=== PATIENT | male | born 1985 | race Hispanic/Latino ===

== ENCOUNTER 2019-05-09 18:18 | Emergency (ER) | payer SELFPAY ==
[2019-05-09] MEDS ORDERED: FENTANYL CITR 100 MCG/2 ML ONE ×2 (18:26→19:30)
[2019-05-09 18:39] LABS: Absolute Lymphocytes (CBC) 2.2 K/uL (0.7-4.9); Basophils % 0.2 % (0-1.3); Hematocrit 43.1 % (39.6-49.0); Lymphocytes % 24.7 % (15.3-44.8); MPV 9.8 fL (7.6-11.3); RBC Red Blood Cell Count 4.42 M/uL (4.33-5.43)
[2019-05-09 18:50] LABS: Potassium 3.5 mmol/L (3.5-5.1)
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
--- NOTE | 2019-05-09 19:05 | RAD REPORT ---
EXAM DESCRIPTION: RAD - Shoulder Left 2 View - 05/09/2019 6:54 pm CLINICAL HISTORY: Left shoulder pain FINDINGS: Anterior dislocation involves the humeral head. No fracture seen
[2019-05-09] MEDS ORDERED: DIAZEPAM 10 MG/2 ML INJ SYRINGE ONE (19:30)
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
--- NOTE | 2019-05-09 20:42 | RAD REPORT ---
EXAM DESCRIPTION: RAD - Shoulder Left 2 View - 05/09/2019 7:45 pm CLINICAL HISTORY: Left shoulder pain status post fall FINDINGS: On one view the previously described dislocation appears reduced. On the other view it is uncertain. Transscapular or axillary view would be helpful for further evaluation
== END 2019-05-09 20:09 | disposition home or self-care (01) ==
LOC: ER 18:18
PROC: 0RSKXZZ Reposition Left Shoulder Joint, External Approach (ICD-10-PCS; principal; 2019-05-09)
DX: S43.005A Unspecified dislocation of left shoulder joint, initial encounter (principal); V49.9XXA Car occupant (driver) (passenger) injured in unspecified traffic accident, initial encounter
CPT/HCPCS: 36415; 70450; 71260; 72125; 74177; 80048; 85025; 86850; 86900; 86901; J3010; J3360; Q9967

== ENCOUNTER 2020-07-18 20:21 | Emergency (ER) | payer SELFPAY ==
[2020-07-18] MEDS ORDERED: LIDOCAINE 1% W/EPI 1:100,000 MDV 20 ML VIAL ONE (21:02)
--- NOTE | 2020-07-18 21:17 | RAD REPORT ---
EXAM DESCRIPTION: RAD - Hand Left 3 View - 07/18/2020 9:10 pm CLINICAL HISTORY: PAIN, laceration COMPARISON: None. FINDINGS: No fracture, dislocation or periosteal reaction noted. No foreign body at the laceration s ite. There is an unrelated round metallic foreign body adjacent to the fourth proximal phalanx head. IMPRESSION: Negative left hand examination.
--- NOTE | 2020-07-18 21:41 | EDPHYS ---
Physician Documentation [facility] Name: Mitchel Beebe Age: 34 yrs Sex: Male : 1985 Arrival Date: 07/18/2020 Time: 20:26 Bed 7 Private MD: Collin Higuera HPI: 07/18 20:46 This 34 yrs old Male presents to ER via Ambulatory with complaints of Hand cp Injury. 20:46 The patient or guardian reports injury, a laceration, pain. The complaints affect the cp dorsum of left hand. Context: resulted from sharp edge of glass. Onset: The symptoms/episode began/occurred today. Associated signs and symptoms: Pertinent negatives: cyanosis distally, decreased sensation distally. Historical: - Allergies: 20:42 No Known Allergies; lp1 - Home Meds: 20:42 None [Active]; lp1 - PMHx: 20:42 None; lp1 - PSHx: 20:42 None; lp1 - Immunization history:: Adult Immunizations up to date, Last tetanus immunization: up to date. - Social history:: Smoking status: Patient reports the use of cigarette tobacco products, denies chronic smoking, but will smoke occasionally. ROS: 20:55 Skin: Positive for laceration(s), of the dorsum of left hand. cp 20:55 Constitutional: Negative for body aches, chills, fever. cp 20:55 Neuro: Negative for numbness, tingling. 20:55 All other systems are negative. Exam: 21:00 Constitutional: The patient appears in no acute distress, alert, awake, well developed, cp well nourished. 21:00 Musculoskeletal/extremity: Extremities: noted in the left fifth metacarpal: pain, cp tenderness, ROM: full active range of motion, in the left fifth finger, Perfusion: the extremity is normally perfused throughout, Sensation intact. 21:00 Skin: injury, laceration(s), the wound is approximately 2.5 cm(s), of the dorsum of left hand medial mid fifth metacarpal, that can be described as linear, with mild bleeding. Vital Signs: 20:40 BP 117 / 74; Pulse 62; Resp 16; Temp 98.8(O); Pulse Ox 98% on R/A; Weight 68.04 kg; lp1 Laceration: 21:40 Wound Repair of 2.5cm ( 1.0in ) subcutaneous laceration to dorsum of left hand. Linear cp shaped.. Distal neuro/vascular/tendon intact. Anesthesia: Wound infiltrated with 5 mls of 1% lidocaine w/ Epi. Wound prep: Moderate cleansing by nurse by me, Wound irrigation by me. Skin closed with 4 4-0 Prolene using simple sutures and sterile technique. Dressed with Bacitracin, 4x4's. Patient tolerated well. MDM: 20:33 Patient medically screened. fabio 21:00 Differential diagnosis: open fracture, tendon rupture, simple laceration. cp 21:38 Data reviewed: vital signs, nurses notes, radiologic studies, plain films. Test cp interpretation: by ED physician or midlevel provider: xrays of left hand negative for fracture. Counseling: I had a detailed discussion with the patient and/or guardian regarding: the historical points, exam findings, and any diagnostic results supporting the discharge/admit diagnosis, radiology results, the need for outpatient follow up, a family practitioner, to return to the emergency department if symptoms worsen or persist or if there are any questions or concerns that arise at home. Response to treatment: the patient's symptoms have markedly improved after treatment. 07/18 20:35 Order name: XRAY Hand LEFT 3 View; Complete Time: 21:42 cp 07/18 21:42 Interpretation: Report reviewed. cp 07/18 20:35 Order name: Dressing - Wound; Complete Time: 20:49 cp 07/18 20:35 Order name: Gloves, Sterile; Complete Time: 20:49 cp 07/18 20:35 Order name: Setup Suture Tray; Complete Time: 20:49 cp 07/18 20:37 Order name: Wound Care: please clean and irrigate wound; Complete Time: 20:39 cp Administered Medications: 21:31 Drug: Lidocaine-Epinephrine -1%: (1:100,000) 10 ml {Note: administered by the mg2 provider.} Volume: 20 ml; Route: Infiltration; Disposition: 22:00 Chart complete. cp Disposition: 07/18/20 21:40 Discharged to Home. Impression: Laceration without foreign body of left hand. - Condition is Stable. - Discharge Instructions: Laceration Care, Adult, Sutured Wound Care. - Prescriptions for Keflex 500 mg Oral Capsule - take 1 capsule by ORAL route every 8 hours for 10 days; 30 capsule. Ibuprofen 800 mg Oral Tablet - take 1 tablet by ORAL route every 8 hours As needed take with food; 30 tablet. - Medication Reconciliation Form, Thank You Letter, Antibiotic Education, Prescription Opioid Use form. - Follow up: Private Physician; When: 10 - 14 days; Reason: Staple/Suture removal. - Problem is new. - Symptoms have improved. Addendum: 07/20/2020 06:45 Co-signature as Attending Physician, Collin Villagran MD I agree with the assessment and c granados plan of care. Signatures: Dispatcher [employer] EDNE Collin Villagran MD MD cha Pena, Laura RN RN lp1 Collin Simmons PA PA cp Chace Burgos, RN RN mg2 Corrections: (The following items were deleted from the chart) 07/18 21:51 21:40 07/18/2020 21:40 Discharged to Home. Impression: Laceration without foreign body lp1 of left hand. Condition is Stable. Forms are Medication Reconciliation Form, Thank You Letter, Antibiotic Education, Prescription Opioid Use. Follow up: Private Physician; When: 10 - 14 days; Reason: Staple/Suture removal. Problem is new. Symptoms have improved. cp
--- NOTE | 2020-07-18 21:41 | ER ---
Nurse's Notes [facility] Name: Mitchel Beebe Age: 34 yrs Sex: Male : 1985 Arrival Date: 07/18/2020 Time: 20:26 Bed 7 Private MD: Diagnosis: Laceration without foreign body of left hand Presentation: 07/18 20:40 Chief complaint: Patient states: was installing window when he pushed on glass and cut lp1 his left hand; Denies any broken glass glass located in left hand; no active bleeding during triage. Coronavirus screen: Client denies travel out of the [place] in the last 14 days. At this time, the client does not indicate any symptoms associated with coronavirus-19. Ebola Screen: No symptoms or risks identified at this time. Initial Sepsis Screen: Does the patient meet any 2 criteria? No. Patient's initial sepsis screen is negative. Does the patient have a suspected source of infection? No. Patient's initial sepsis screen is negative. Risk Assessment: Do you want to hurt yourself or someone else? Patient reports no desire to harm self or others. Onset of symptoms was July 18, 2020 at 18:00. 20:40 Method Of Arrival: Ambulatory lp1 20:40 Acuity: DEE 4 lp1 Historical: - Allergies: 20:42 No Known Allergies; lp1 - Home Meds: 20:42 None [Active]; lp1 - PMHx: 20:42 None; lp1 - PSHx: 20:42 None; lp1 - Immunization history:: Adult Immunizations up to date, Last tetanus immunization: up to date. - Social history:: Smoking status: Patient reports the use of cigarette tobacco products, denies chronic smoking, but will smoke occasionally. Screenin:43 Abuse screen: Denies threats or abuse. Denies injuries from another. Nutritional lp1 screening: No deficits noted. Tuberculosis screening: No symptoms or risk factors identified. Fall Risk None identified. Assessment: 20:42 General: Appears in no apparent distress. Behavior is calm, cooperative, appropriate lp1 for age. Pain: Complains of pain in medial aspect of left hand and dorsum of left hand. Neuro: No deficits noted. Cardiovascular: Patient's skin is warm and dry. Respiratory: Respiratory effort is even, unlabored. GI: No deficits noted. : No deficits noted. EENT: No signs and/or symptoms were reported regarding the EENT system. Derm: Wound noted medial aspect of left hand and dorsum of left hand. Musculoskeletal: Circulation, motion, and sensation intact. Range of motion: intact in MCP of left little finger. Injury Description: Laceration sustained to medial aspect of left hand and dorsum of left hand is clean, 0.5 to 2.5 cm long, not bleeding. Vital Signs: 20:40 BP 117 / 74; Pulse 62; Resp 16; Temp 98.8(O); Pulse Ox 98% on R/A; Weight 68.04 kg; lp1 ED Course: 20:26 Patient arrived in ED. bg2 20:32 Collin Simmons PA is PHCP. cp 20:32 Collin Villagran MD is Attending Physician. cp 20:39 Marely Giraldo, RANDY is Primary Nurse. lp1 20:39 Wound care: to laceration located on medial aspect of left hand and dorsum of left hand lp1 was irrigated with normal saline. 20:41 Triage completed. lp1 20:41 Arm band placed on right wrist. lp1 20:50 Patient has correct armband on for positive identification. lp1 21:10 XRAY Hand LEFT 3 View In Process Unspecified. EDMS 21:50 No provider procedures requiring assistance completed. Patient did not have IV access lp1 during this emergency room visit. 21:50 Wound care: was dressed with non-adherent pad and foam tape. lp1 Administered Medications: 21:31 Drug: Lidocaine-Epinephrine -1%: (1:100,000) 10 ml {Note: administered by the mg2 provider.} Volume: 20 ml; Route: Infiltration; Outcome: 21:40 Discharge ordered by MD. cp 21:51 Discharged to home ambulatory, with significant other. lp1 21:51 Condition: good 21:51 Discharge instructions given to patient, significant other, Instructed on discharge instructions, follow up and referral plans. medication usage, wound care, Demonstrated understanding of instructions, follow-up care, medications, wound care, Prescriptions given X 2. 21:51 Patient left the ED. lp1 Signatures: Dispatcher [employer] EDMS Marely Giraldo, RANDY RN lp1 Bella Logan bg2 Collin Simmons PA PA cp Gardose, Chace, RN RN mg2
[2020-07-18 22:06] VITALS: BP 117/74; TEMP 98.8; O2SAT 98
== END 2020-07-18 21:51 | disposition home or self-care (01) ==
LOC: ER 20:21
PROC: 0JQK0ZZ Repair Left Hand Subcutaneous Tissue and Fascia, Open Approach (ICD-10-PCS; principal; 2020-07-18)
DX: S61.412A Laceration without foreign body of left hand, initial encounter (principal); W25.XXXA Contact with sharp glass, initial encounter; Y93.9 Activity, unspecified; Y92.9 Unspecified place or not applicable; Z72.0 Tobacco use
CPT/HCPCS: 99284